=== PATIENT | female | born 1945 | race Caucasian/White ===

== ENCOUNTER 2017-11-18 14:48 | Inpatient (IN) | payer MEDICARE ==
--- NOTE | 2017-11-18 15:06 | ER Document Report ---
ED General Pain - General Stated Complaint: DIFFICULTY BREATHING Time Seen by Provider: 11/18/17 14:51 Mode of Arrival: Medic - HPI Notes: 72-year-old female with history of diabetes, hypothyroidism, COPD, continued tobacco abuse, cholecystectomy and hysterectomy presents with complaints of dyspnea as well as abdominal cramping. Cramping started initially approximately 4 days ago has been intermittent since then but fairly severe. It is diffuse across the upper abdomen and nonradiating otherwise. She has had some mild nausea but no vomiting. No diarrhea and her last bowel movement was yesterday which was normal. She has had no blood that she has noted. She has had a cough with some purulent sputum as well with shortness of breath starting today with significant amount of wheezing. Over approximately 4 hours, she has used 9 albuterol treatments as well but still having difficulty breathing. She denies any specific chest pain. She is noted wheezing. She has had some sore throat as well when the abdominal discomfort started but did not get the significant chills requiring multiple blankets until last night. EMS reported an oxygen saturation of 90% on room air upon arrival and treated her with Atrovent as well as Solu-Medrol 125 mg IV. Denies dysuria and hematuria. - Related Data Allergies/Adverse Reactions: aspirin [From Percodan] Allergy (Verified 06/18/12 10:54) Generalized Itching cefaclor [From Ceclor] Allergy (Verified 06/18/12 10:54) Generalized Itching Cephalosporins Allergy (Verified 06/18/12 10:54) oxaprozin [From Daypro] Allergy (Verified 06/18/12 10:54) itch/throat swells closed oxycodone HCl [From Percodan] Allergy (Verified 06/18/12 10:54) Generalized Itching oxycodone terephthalate [From Percodan] Allergy (Verified 06/18/12 10:54) Generalized Itching ranitidine HCl [From Zantac] Allergy (Verified 06/18/12 10:54) Sulfa (Sulfonamide Antibiotics) Allergy (Verified 06/18/12 10:54) itch/throat swells Past Medical History - Social History Smoking Status: Current Every Day Smoker Family History: Reviewed & Not Pertinent - Past Medical History Cardiac Medical History: Denies: Hx Heart Attack, Hx Hypertension Pulmonary Medical History: Denies: Hx Asthma Neurological Medical History: Denies: Hx Cerebrovascular Accident, Hx Seizures GI Medical History: Denies: Hx Hepatitis, Hx Hiatal Hernia - PT SUSPECTS BUT NO DX, Hx Ulcer Infectious Medical History: Denies: Hx Hepatitis Past Surgical History: Denies: Hx Mastectomy, Hx Open Heart Surgery, Hx Pacemaker Review of Systems - Review of Systems -: Yes All other systems reviewed and negative Physical Exam - Vital signs Vitals: Pulse Ox 93 11/18/17 14:52 Interpretation: Tachypneic - Notes Notes: GENERAL: VS as per nursing doc. morbidly obese and tachypneic in mild respiratory distress. HEAD: Atraumatic, normocephalic. EYES: Pupils equal round and reactive to light, extraocular movements intact, sclera anicteric, no conjunctival injection or discharge. ENT: Nares patent, oropharynx clear without exudates, moist mucous membranes. NECK: Normal range of motion, supple without lymphadenopathy. LUNGS: Tachypneic, breath sounds decreased bilaterally, diffuse inspiratory respiratory wheezes noted HEART: Regular rate and rhythm without murmurs. ABDOMEN: Soft, generalized upper abdominal tenderness, hyperactive bowel sounds. No guarding, no rebound. No masses appreciated. BACK: No CVA tenderness. EXTREMITIES: Normal range of motion, no calf tenderness, no edema. NEUROLOGICAL: Normal speech. Normal sensory and motor exams. No gross cerebellar abnormalities. PSYCH: Normal mood, normal affect. SKIN: Warm, dry. Course - Re-evaluation Re-evalutation: 11/18/17 17:00 Patient reevaluated still tight and wheezing. Will order more nebulizers. ABG is still not been completed. Apparently she refused from the nurse. She is very somnolent but does awaken and talks in clear voice. Explained to her the importance of the ABG as well. She understands we will not have a good picture of her oxygenation but we will attempt a VBG instead. - Vital Signs Vital signs: Temp Pulse Resp BP Pulse Ox 20 122/61 94 11/18/17 19:33 11/18/17 19:33 11/18/17 19:33 - Laboratory Result Diagrams: 11/18/17 15:40 11/18/17 15:40 Laboratory results interpreted by me: 11/18/17 11/18/17 11/18/17 15:40 15:40 17:25 RDW 15.1 H Seg Neuts % (Manual) 96 H Band Neutrophils % 2 L Lymphocytes % (Manual) 1 L Monocytes % (Manual) 1 L Abs Neuts (Manual) 8.7 H Abs Lymphs (Manual) 0.1 L ABG pO2 74.1 L ABG Total CO2 25.6 H Sodium 135.7 L Potassium 3.5 L Glucose 209 H - Diagnostic Test Radiology reviewed: Image reviewed, Reports reviewed - No acute process noted - EKG Interpretation by Me Rate: Tachycardia - Rate 104, sinus tachycardia, nonspecific ST abnormalities. No obvious acute ischemia. QRS of normal duration. - Consults Dr. Sanchez Time consulted: 20:03 - We have been holds currently. He requests another troponin. Patient has improved overall. Still requiring oxygen. Abdominal pain better. Findings discussed with patient and family. Discharge - Discharge Clinical Impression: COPD with exacerbation, Epigastric pain Condition: Fair Disposition: ADMITTED OBSERVATION Admitting Provider: Dr. Sanchez Unit Admitted: Telemetry
[2017-11-18] MEDS ORDERED: DICYCLOMINE HCL INJ 20 MG/2 ML AMPULE IM ONE (15:12)
[2017-11-18] MEDS ORDERED: ONDANSETRON HCL INJ/PF 4 MG/2 ML SDV IV ONE (15:12)
--- NOTE | 2017-11-18 15:34 | RADIOLOGY REPORT (SQ) ---
EXAM DESCRIPTION: CHEST SINGLE VIEW COMPLETED DATE/TIME: 11/18/2017 3:17 pm REASON FOR STUDY: Dyspnea COMPARISON: None. EXAM PARAMETERS: NUMBER OF VIEWS: One view. TECHNIQUE: Single frontal radiographic view of the chest acquired. RADIATION DOSE: NA LIMITATIONS: None. FINDINGS: LUNGS AND PLEURA: No opacities, masses or pneumothorax. No pleural effusion. MEDIASTINUM AND HILAR STRUCTURES: No masses. Contour normal. HEART AND VASCULAR STRUCTURES: Heart normal in size. Normal vasculature. BONES: No acute findings. HARDWARE: Operative changes lower cervical spine. OTHER: No other significant finding. IMPRESSION: NO ACUTE RADIOGRAPHIC FINDING IN THE CHEST. TECHNICAL DOCUMENTATION: JOB ID: [id number] [employer]- All Rights Reserved
[2017-11-18 16:16] LABS: HEMATOCRIT 41.6 % (36.0-47.0); HEMOGLOBIN 13.8 g/dL (12.0-15.5); MEAN CORPUSCULAR HEMOGLOBIN 29.7 pg (27.0-33.4); MEAN CORPUSCULAR HGB CONC 33.2 g/dL (32.0-36.0); MEAN CORPUSCULAR VOLUME 90 fl (80-97); PLATELET COUNT 210 10^3/uL (150-450); RED BLOOD COUNT 4.64 10^6/uL (3.72-5.28); RED CELL DISTRIBUTION WIDTH 15.1 % (11.5-14.0); WHITE BLOOD COUNT 8.9 10^3/uL (4.0-10.5)
[2017-11-18 16:39] LABS: ABSOLUTE LYMPHOCYTES# (MANUAL) 0.1 10^3/uL (0.5-4.7); ABSOLUTE MONOCYTES # (MANUAL) 0.1 10^3/uL (0.1-1.4); ABSOLUTE NEUTROPHILS# (MANUAL) 8.7 10^3/uL (1.7-8.2); ALANINE AMINOTRANSFERASE 32 U/L (9-52); ALBUMIN 3.7 g/dL (3.5-5.0); ALKALINE PHOSPHATASE 89 U/L (38-126); ANION GAP 12 (5-19); ASPARTATE AMINO TRANSFERASE 24 U/L (14-36); BAND NEUTROPHILS % (MANUAL) 2 % (3-5); BASOPHILS % (MANUAL) 0 % (0-2); BILIRUBIN,DIRECT 0.2 mg/dL (0.0-0.4); BILIRUBIN,TOTAL 0.5 mg/dL (0.2-1.3); BLOOD UREA NITROGEN 15 mg/dL (7-20); CALCIUM 8.9 mg/dL (8.4-10.2); CARBON DIOXIDE 23 mmol/L (22-30); CHLORIDE 101 mmol/L (98-107); EOSINOPHILS % (MANUAL) 0 % (0-6); GLUCOSE 209 mg/dL (75-110); HYPOCHROMASIA SLIGHT; LIPASE 31.9 U/L (23-300); LYMPHOCYTES % (MANUAL) 1 % (13-45); MONOCYTES % (MANUAL) 1 % (3-13); POTASSIUM 3.5 mmol/L (3.6-5.0); SEGMENTED NEUTROPHILS % (MAN) 96 % (42-78); SODIUM 135.7 mmol/L (137-145); TOTAL CELLS COUNTED 100; TOTAL PROTEIN 6.8 g/dL (6.3-8.2)
[2017-11-18 16:40] LABS: ANISOCYTOSIS SLIGHT; PLATELET COMMENT ADEQUATE
[2017-11-18] MEDS ORDERED: IPRATROPIUM/ALBUTEROL 0.5-2.5 MG/3 ML AMPUL NEB ONE (17:01)
[2017-11-18 18:04] LABS: ARTERIAL BLOOD BASE EXCESS -0.2 mmol/L; ARTERIAL BLOOD H2CO3 1.19 mmol/L (1.05-1.35); ARTERIAL BLOOD HCO3 24.4 mmol/L (20-26); ARTERIAL BLOOD PCO2 39.7 mmHg (35-45); ARTERIAL BLOOD PH 7.41 (7.35-7.45); ARTERIAL BLOOD PO2 74.1 mmHg (80-100); ARTERIAL BLOOD TOTAL CO2 25.6 mmol/L (21-25)
[2017-11-18 18:06] LABS: ARTERIAL BLOOD FIO2 3L
--- NOTE | 2017-11-18 18:34 | EKG REPORT ---
SEVERITY:- ABNORMAL ECG - SINUS TACHYCARDIA PROBABLE INFERIOR INFARCT, OLD : Confirmed by: Sonya Vasquez 18-Nov-2017 18:33:06
--- NOTE | 2017-11-18 19:30 | RADIOLOGY REPORT (SQ) ---
EXAM DESCRIPTION: CT ABD/PELVIS NO ORAL OR IV COMPLETED DATE/TIME: 11/18/2017 7:13 pm REASON FOR STUDY: Abd pain COMPARISON: None. TECHNIQUE: CT scan of the abdomen and pelvis performed without intravenous or oral contrast. Images reviewed with lung, soft tissue, and bone windows. Reconstructed coronal and sagittal MPR images revi ewed. All images stored on PACS. All CT scanners at this facility use dose modulation, iterative reconstruction, and/or weight based d osing when appropriate to reduce radiation dose to as low as reasonably achievable (ALARA). [facility]: Dose Right [facility]: CareDose [facility]: Dose Right [facility]: Teradose 4D [facility]: Smart Bactest RADIATION DOSE: CT Rad equipment meets quality standard of care and radiation dose reduction techniq ues were employed. CTDIvol: 27.2 mGy. DLP: 1375 mGy-cm.mGy. LIMITATIONS: None. FINDINGS: LOWER CHEST: Prominent fatty density between the right atrium and left atrium. Basilar sc arring. No nodules or infiltrates. NON-CONTRASTED LIVER, SPLEEN, ADRENALS: Evaluation limited by lack of IV contrast. No identified sign ificant masses. Calcified granulomas in the spleen. PANCREAS: No masses. No peripancreatic inflammatory changes. GALLBLADDER: Surgically absent. RIGHT KIDNEY AND URETER: No suspicious masses. Assessment limited by lack of IV contrast. No signif icant calcifications. No hydronephrosis or hydroureter. LEFT KIDNEY AND URETER: No suspicious masses. Assessment limited by lack of IV contrast. No signifi cant calcifications. No hydronephrosis or hydroureter. AORTA AND RETROPERITONEUM: No aneurysm. No retroperitoneal masses or adenopathy. BOWEL AND PERITONEAL CAVITY: Colonic diverticulosis. No obvious masses or inflammatory changes. No f ree fluid. APPENDIX: Normal. PELVIS, BLADDER, AND ABDOMINAL WALL:No abnormal masses. No free fluid. Bladder normal. BONES: No significant findings. OTHER: No other significant finding. IMPRESSION: 1. COLONIC DIVERTICULOSIS. NO CT FINDINGS OF ACUTE DIVERTICULITIS. NO OTHER SIGNIFICANT OR ACUTE AL OCESS IN THE ABDOMEN OR PELVIS. 2. PROMINENT FATTY DENSITY BETWEEN THE RIGHT ATRIUM AND LEFT ATRIUM. THIS COULD BE DUE TO LIPOMATOSI S HYPERTROPHY OR LIPOMA. CONSIDER FURTHER EVALUATION WITH ECHOCARDIOGRAPHY. COMMENT: Quality ID # [id number]: Final reports with documentation of one or more dose reduction techniques (e.g., Automated exposure control, adjustment of the mA and/or kV according to patient size, use of iterative reconstruction technique) TECHNICAL DOCUMENTATION: JOB ID: [id number] [employer]- All Rights Reserved
[2017-11-18] MEDS ORDERED: GLUCAGON,HUMAN RECOMB 1 MG INJ IM PRN (21:43)
[2017-11-18] MEDS ORDERED: DEXTROSE 40% GEL 15 GM TUBE PO PRN ×2 (21:43)
[2017-11-18] MEDS ORDERED: DEXTROSE 50%-WATER 25 GM/50 ML DISP.SYRIN IV PRN ×2 (21:43)
[2017-11-18] MEDS ORDERED: IPRATROPIUM/ALBUTEROL 0.5-2.5 MG/3 ML AMPUL NEB PRN (21:43)
[2017-11-18] MEDS ORDERED: HYDRALAZINE HCL INJ/PF 20 MG/1 ML SDV IV PRN (21:43)
[2017-11-18] MEDS ORDERED: CHLORPHENIRAMINE MALEATE 4 MG TABLET PO ONE (22:30)
[2017-11-18] MEDS ORDERED: CHLORPHENIRAMINE MALEATE 4 MG TABLET ONE (23:21)
[2017-11-18] MEDS ORDERED: FLUTICASONE NASAL SPRAY 50 MCG/SPRY 120 SPRAY/16 GM ONE (23:22)
[2017-11-18] MEDS: GUAIFENESIN 600 MG TABLET.SA PO SCH (23:46)
[2017-11-18] MEDS: HEPARIN SOD (PORCINE) 5,000 UNIT/ML 1 ML SYRINGE SUBCUT SCH (23:46)
[2017-11-18] MEDS: FLUTICASONE NASAL SPRAY 50 MCG/SPRY 120 SPRAY/16 GM NASL SCH (23:46)
[2017-11-19] MEDS: IPRATROPIUM/ALBUTEROL 0.5-2.5 MG/3 ML AMPUL NEB SCH ×5 (01:57→23:42)
[2017-11-19] MEDS: GUAIFENESIN SYRP 200 MG/10 ML UDC PO PRN ×2 (02:54→06:43)
[2017-11-19 05:16] LABS: ANION GAP 8 (5-19); BLOOD UREA NITROGEN 18 mg/dL (7-20); CALCIUM 8.9 mg/dL (8.4-10.2); CARBON DIOXIDE 28 mmol/L (22-30); CHLORIDE 101 mmol/L (98-107); GLUCOSE 189 mg/dL (75-110); SODIUM 136.7 mmol/L (137-145)
[2017-11-19] MEDS: ACETAMINOPHEN 325 MG TABLET PO PRN (05:19)
[2017-11-19] MEDS: HEPARIN SOD (PORCINE) 5,000 UNIT/ML 1 ML SYRINGE SUBCUT SCH ×3 (05:19→21:20)
[2017-11-19 05:27] LABS: HEMATOCRIT 40.7 % (36.0-47.0); HEMOGLOBIN 13.4 g/dL (12.0-15.5); MEAN CORPUSCULAR HEMOGLOBIN 29.8 pg (27.0-33.4); MEAN CORPUSCULAR VOLUME 91 fl (80-97); PLATELET COUNT 184 10^3/uL (150-450); RED CELL DISTRIBUTION WIDTH 15.1 % (11.5-14.0); WHITE BLOOD COUNT 6.7 10^3/uL (4.0-10.5)
[2017-11-19 05:28] LABS: POTASSIUM 4.7 mmol/L (3.6-5.0)
[2017-11-19 06:09] LABS: ABSOLUTE LYMPHOCYTES# (MANUAL) 0.4 10^3/uL (0.5-4.7); ABSOLUTE MONOCYTES # (MANUAL) 0.2 10^3/uL (0.1-1.4); ABSOLUTE NEUTROPHILS# (MANUAL) 6.1 10^3/uL (1.7-8.2); BAND NEUTROPHILS % (MANUAL) 2 % (3-5); BASOPHILS % (MANUAL) 0 % (0-2); EOSINOPHILS % (MANUAL) 0 % (0-6); LYMPHOCYTES % (MANUAL) 6 % (13-45); MONOCYTES % (MANUAL) 3 % (3-13); SEGMENTED NEUTROPHILS % (MAN) 89 % (42-78); TOTAL CELLS COUNTED 100
[2017-11-19 06:10] LABS: ANISOCYTOSIS SLIGHT; PLATELET COMMENT ADEQUATE; TOXIC GRANULATION 1+
--- NOTE | 2017-11-19 07:38 | PDOC H&P ---
History of Present Illness Admission Date/PCP: 11/18/17 20:19 Patient complains of: Shortness of breath History of Present Illness: JUAN MCGRATH is a 72 year old female with past medical history of diabetes, hypothyroidism, COPD, chronic bronchitis, tobacco abuse and morbid obesity. She presents with 4 days of sore throat, uncontrolled acid reflux, shortness of breath and a nonproductive cough. She denies chest pain nausea and vomiting. Her has similar symptoms and is hospitalized for the same. In the emergency room she is found to have oxygen saturations of only 90% on room air after several albuterol Atrovent treatments and Solu-Medrol. She is referred to the hospitalist for admission. Past Medical History Cardiac Medical History: Denies: Myocardial Infarction, Hypertension Pulmonary Medical History: Reports: Bronchitis, Chronic Obstructive Pulmonary Disease (COPD) Denies: Asthma Neurological Medical History: Denies: Seizures Endocrine Medical History: Reports: Diabetes Mellitus Type 2, Hypothyroidism, Obesity GI Medical History: Denies: Hepatitis, Hiatal Hernia - PT SUSPECTS BUT NO DX Psychiatric Medical History: Reports: Tobacco Dependency Hematology: Denies: Anemia, Sickle Cell Disease Past Surgical History Past Surgical History: Denies: Amputation, Mastectomy, Pacemaker Social History Information Source: Patient, [facility] Records Lives with: Spouse/Significant other Smoking Status: Current Every Day Smoker Cigarettes Packs Per Day: 1 Frequency of Alcohol Use: None Drugs: None - Advance Directive Resuscitation Status: Full Code Family History Family History: COPD Parental Family History Reviewed: Yes Children Family History Reviewed: Yes Sibling(s) Family History Reviewed.: Yes Medication/Allergy Home Medications: Glimepiride [Amaryl] 2 mg PO BID 11/18/17 Allergies/Adverse Reactions: aspirin [From Percodan] Allergy (Verified 06/18/12 10:54) Generalized Itching cefaclor [From Ceclor] Allergy (Verified 06/18/12 10:54) Generalized Itching Cephalosporins Allergy (Verified 06/18/12 10:54) oxaprozin [From Daypro] Allergy (Verified 06/18/12 10:54) itch/throat swells closed oxycodone HCl [From Percodan] Allergy (Verified 06/18/12 10:54) Generalized Itching oxycodone terephthalate [From Percodan] Allergy (Verified 08/22/12 10:54) Generalized Itching ranitidine HCl [From Zantac] Allergy (Verified 06/18/12 10:54) Sulfa (Sulfonamide Antibiotics) Allergy (Verified 06/18/12 10:54) itch/throat swells Review of Systems Constitutional: PRESENT: fatigue. ABSENT: chills, fever(s), headache(s), weight gain, weight loss Eyes: ABSENT: visual disturbances Ears: ABSENT: hearing changes Cardiovascular: ABSENT: chest pain, dyspnea on exertion, edema, orthropnea, palpitations Respiratory: PRESENT: as per HPI, cough, dyspnea. ABSENT: hemoptysis Gastrointestinal: ABSENT: abdominal pain, constipation, diarrhea, hematemesis, hematochezia, nausea, vomiting Genitourinary: ABSENT: dysuria, hematuria Musculoskeletal: ABSENT: joint swelling Integumentary: ABSENT: rash, wounds Neurological: ABSENT: abnormal gait, abnormal speech, confusion, dizziness, focal weakness, syncope Psychiatric: ABSENT: anxiety, depression, homidical ideation, suicidal ideation Endocrine: ABSENT: cold intolerance, heat intolerance, polydipsia, polyuria Hematologic/Lymphatic: ABSENT: easy bleeding, easy bruising Physical Exam Vital Signs: Temp Pulse Resp BP Pulse Ox 98.5 F 96 18 143/62 H 96 11/19/17 03:55 11/19/17 03:55 11/19/17 03:55 11/19/17 03:55 11/19/17 03:55 Intake & Output 11/17/17 11/18/17 11/19/17 11:59 11:59 11:59 Intake Total 200 Output Total 100 Balance 100 Weight 117.1 kg General appearance: PRESENT: cooperative, obese, severe distress Head exam: PRESENT: atraumatic, normocephalic Eye exam: PRESENT: conjunctiva pink, EOMI, PERRLA. ABSENT: scleral icterus Ear exam: PRESENT: normal external ear exam Mouth exam: PRESENT: moist, tongue midline Neck exam: ABSENT: carotid bruit, JVD, lymphadenopathy, thyromegaly Respiratory exam: PRESENT: accessory muscle use, crackles, prolonged expiratory phas, rales, retraction, symmetrical, tachypnea Cardiovascular exam: PRESENT: RRR. ABSENT: diastolic murmur, rubs, systolic murmur Pulses: PRESENT: normal dorsalis pedis pul Vascular exam: PRESENT: normal capillary refill GI/Abdominal exam: PRESENT: normal bowel sounds, soft. ABSENT: distended, guarding, mass, organolmegaly, rebound, tenderness Rectal exam: PRESENT: deferred Extremities exam: PRESENT: full ROM. ABSENT: calf tenderness, clubbing, pedal edema Neurological exam: PRESENT: alert, awake, oriented to person, oriented to place , oriented to time, oriented to situation, CN II-XII grossly intact. ABSENT: motor sensory deficit Psychiatric exam: PRESENT: appropriate affect, normal mood. ABSENT: homicidal ideation, suicidal ideation Skin exam: PRESENT: dry, intact, warm. ABSENT: cyanosis, rash Results Laboratory Results: 11/19/17 03:55 11/19/17 03:55 11/19/17 11/19/17 03:55 03:55 WBC 6.7 RBC 4.50 Hgb 13.4 Hct 40.7 MCV 91 MCH 29.8 MCHC 33.0 RDW 15.1 H Plt Count 184 Seg Neutrophils % Not Reportable Lymphocytes % Not Reportable Monocytes % Not Reportable Eosinophils % Not Reportable Basophils % Not Reportable Absolute Neutrophils Not Reportable Absolute Lymphocytes Not Reportable Absolute Monocytes Not Reportable Absolute Eosinophils Not Reportable Absolute Basophils Not Reportable Sodium 136.7 L Potassium 4.7 D Chloride 101 Carbon Dioxide 28 Anion Gap 8 BUN 18 Creatinine 0.68 Est GFR ( Amer) > 60 Est GFR (Non-Af Amer) > 60 Glucose 189 H Calcium 8.9 11/18/17 20:50 Troponin I 0.015 Impressions: Chest X-Ray 11/18/17 15:04 IMPRESSION: NO ACUTE RADIOGRAPHIC FINDING IN THE CHEST. Abdomen/Pelvis CT 11/18/17 18:13 IMPRESSION: 1. COLONIC DIVERTICULOSIS. NO CT FINDINGS OF ACUTE DIVERTICULITIS. NO OTHER SIGNIFICANT OR ACUTE PROCESS IN THE ABDOMEN OR PELVIS. 2. PROMINENT FATTY DENSITY BETWEEN THE RIGHT ATRIUM AND LEFT ATRIUM. THIS COULD BE DUE TO LIPOMATOSIS HYPERTROPHY OR LIPOMA. CONSIDER FURTHER EVALUATION WITH ECHOCARDIOGRAPHY. Assessment & Plan - Diagnosis (1) Acute bronchitis Is this a current diagnosis for this admission?: Yes Plan: Telemetry, supplemental oxygen, empiric antibiotic, albuterol and Atrovent, flutter valve and incentive spirometry (2) Diabetes Is this a current diagnosis for this admission?: Yes Plan: Home regiment with sliding scale (3) Morbid obesity Is this a current diagnosis for this admission?: Yes Plan: Morbid obesity will evaluate for metabolic cause with evaluation of thyroid function and dietitian consultation (4) COPD with exacerbation Is this a current diagnosis for this admission?: Yes Plan: Complicated by tobacco dependence please see #1 (5) Tobacco dependency Is this a current diagnosis for this admission?: Yes Plan: Tobacco Dependence patient received tobacco cessation counseling and offered nicotine replacement options - Time Time Spent: 50 to 70 Minutes - Inpatient Certification Medical Necessity: Need Close Monitoring Due to Risk of Patient Decompensation
[2017-11-19] MEDS ORDERED: AZITHROMYCIN 500 MG in DEXTROSE 5%-WATER 250 ML IV SCH (10:00)
[2017-11-19] MEDS: GLIMEPIRIDE 1 MG TABLET PO SCH ×2 (10:30→17:55)
[2017-11-19] MEDS: PREDNISONE 20 MG TABLET PO SCH ×2 (10:30→17:55)
[2017-11-19] MEDS: GUAIFENESIN 600 MG TABLET.SA PO SCH ×2 (10:30→21:20)
[2017-11-19] MEDS: FLUTICASONE NASAL SPRAY 50 MCG/SPRY 120 SPRAY/16 GM NASL SCH ×2 (10:31→21:26)
[2017-11-19] MEDS: CALCIUM CARBONATE 500 MG TAB.CHEW PO SCH ×3 (12:38→21:20)
--- NOTE | 2017-11-19 14:00 | Physician Advisory Note ---
Physician Advisor ProgressNote .: Pursuant to the plan for [facility], I have reviewed the medical record for this patient. Physician Advisor Statement: Please consider documenting, if you agree: 1. "Acute Hypoxemic Respiratory Failure with labored breathing/accessory muscle use & hypoxemia with pO2 74 on 3L O2" 2. "Acute epigastric pain, suspect most likely due to " [gastric ulcer ? mesenteric ischemia? ...] 3. "Acute hyponatremia, likely due to ", & state how being addressed: IVF? fluid restriction? f/u labs? ... 4. Medical necessity: Please document each day the reasons pt unable to be safely d/c'd that day, such as - "continued need for O2 which she doesn't need at baseline", - "respiratory function not yet back to baseline", - "continues hemodynamically unstable", - "I AM CONCERNED about ", ... Status: Medicare pt with COPD, DM, morbid obesity, here w/hypoxemia & increased work of breathing. Despite hospital level care through 1 MN, pt was still in severe distress this AM. She has been tx'd with multiple nebs, IV Solumedrol, abx, O2, Bipap, flutter valve, incentive spirometry. Per discussion with pt's nurse just now, pt still has labored breathing this PM , still requiring O2 & intermittent Bipap - no chance she will be improved enough for safe d/c before a 2nd MN. appropriate for Inpt status. Thanks! BEATRIZ
[2017-11-19] MEDS: BUDESONIDE NEB 0.5 MG/2 ML AMPUL NEB SCH (20:01)
[2017-11-19] MEDS: MONTELUKAST SODIUM 10 MG TABLET PO SCH (21:20)
[2017-11-19] MEDS: PANTOPRAZOLE SODIUM 40 MG VIAL IV SCH (21:21)
[2017-11-19] MEDS: METHYLPREDNISOLONE INJ 40 MG/1 ML SDV IV SCH (21:25)
[2017-11-20] MEDS: ACETAMINOPHEN 325 MG TABLET PO PRN (02:48)
[2017-11-20] MEDS ORDERED: MAGNESIUM CITRATE 296 ML BOTTLE PO ONE (04:00)
[2017-11-20] MEDS: IPRATROPIUM/ALBUTEROL 0.5-2.5 MG/3 ML AMPUL NEB SCH ×5 (04:16→19:49)
[2017-11-20] MEDS: METHYLPREDNISOLONE INJ 40 MG/1 ML SDV IV SCH ×3 (05:54→21:56)
[2017-11-20] MEDS: HEPARIN SOD (PORCINE) 5,000 UNIT/ML 1 ML SYRINGE SUBCUT SCH ×3 (05:55→22:05)
[2017-11-20] MEDS: BUDESONIDE NEB 0.5 MG/2 ML AMPUL NEB SCH ×2 (08:39→19:49)
[2017-11-20] MEDS: GLIMEPIRIDE 1 MG TABLET PO SCH ×2 (10:16→18:26)
[2017-11-20] MEDS: CALCIUM CARBONATE 500 MG TAB.CHEW PO SCH ×4 (10:16→21:55)
[2017-11-20] MEDS: FLUTICASONE NASAL SPRAY 50 MCG/SPRY 120 SPRAY/16 GM NASL SCH ×2 (10:16→21:56)
[2017-11-20] MEDS: GUAIFENESIN 600 MG TABLET.SA PO SCH ×2 (10:16→21:53)
[2017-11-20] MEDS: LEVOFLOXACIN 500 MG TABLET PO SCH (10:16)
[2017-11-20] MEDS: PANTOPRAZOLE SODIUM 40 MG VIAL IV SCH ×2 (10:16→21:56)
--- NOTE | 2017-11-20 11:06 | PDOC PROGRESS REPORT ---
Subjective Progress Note for:: 11/19/17 Subjective:: Patient presented with COPD exacerbation acute hypoxic respiratory failure. Patient require intermittent BiPAP. Patient was wheezing and using accessory muscles when I entered the room. Patient is asking for normal saline drops without any preservative to use for her eyes as she had a recent cataract surgery and cannot use drops or preservatives. Reason For Visit: COPD EXACERBATION. DIABETES Physical Exam Vital Signs: Temp Pulse Resp BP Pulse Ox 98.9 F 88 20 131/70 H 95 11/19/17 20:44 11/19/17 20:44 11/19/17 20:44 11/19/17 20:44 11/19/17 20:44 Intake & Output 11/18/17 11/19/17 11/20/17 06:59 06:59 06:59 Intake Total 200 875 Output Total 100 Balance 100 875 Weight 117.1 kg 117.1 kg General appearance: PRESENT: no acute distress, morbidly obese Head exam: PRESENT: normocephalic Eye exam: PRESENT: EOMI. ABSENT: scleral icterus Ear exam: PRESENT: normal external ear exam Mouth exam: PRESENT: moist Neck exam: ABSENT: carotid bruit, JVD, lymphadenopathy, thyromegaly Respiratory exam: PRESENT: accessory muscle use, tachypnea, wheezes. ABSENT: rales, rhonchi, unlabored Cardiovascular exam: PRESENT: RRR. ABSENT: diastolic murmur, rubs, systolic murmur Pulses: PRESENT: normal dorsalis pedis pul Vascular exam: PRESENT: normal capillary refill GI/Abdominal exam: PRESENT: normal bowel sounds, soft. ABSENT: distended, guarding, mass, organolmegaly, rebound, tenderness Rectal exam: PRESENT: deferred Extremities exam: PRESENT: full ROM. ABSENT: calf tenderness, clubbing, pedal edema Neurological exam: PRESENT: alert, awake, oriented to person, oriented to place , oriented to time, oriented to situation, CN II-XII grossly intact. ABSENT: motor sensory deficit Psychiatric exam: PRESENT: appropriate affect, normal mood. ABSENT: homicidal ideation, suicidal ideation Skin exam: PRESENT: dry, intact, warm. ABSENT: cyanosis, rash Results Laboratory Results: 11/19/17 03:55 11/19/17 03:55 11/19/17 11/19/17 03:55 03:55 WBC 6.7 RBC 4.50 Hgb 13.4 Hct 40.7 MCV 91 MCH 29.8 MCHC 33.0 RDW 15.1 H Plt Count 184 Seg Neutrophils % Not Reportable Lymphocytes % Not Reportable Monocytes % Not Reportable Eosinophils % Not Reportable Basophils % Not Reportable Absolute Neutrophils Not Reportable Absolute Lymphocytes Not Reportable Absolute Monocytes Not Reportable Absolute Eosinophils Not Reportable Absolute Basophils Not Reportable Sodium 136.7 L Potassium 4.7 D Chloride 101 Carbon Dioxide 28 Anion Gap 8 BUN 18 Creatinine 0.68 Est GFR ( Amer) > 60 Est GFR (Non-Af Amer) > 60 Glucose 189 H Calcium 8.9 11/18/17 20:50 Troponin I 0.015 Impressions: Chest X-Ray 11/18/17 15:04 IMPRESSION: NO ACUTE RADIOGRAPHIC FINDING IN THE CHEST. Abdomen/Pelvis CT 11/18/17 18:13 IMPRESSION: 1. COLONIC DIVERTICULOSIS. NO CT FINDINGS OF ACUTE DIVERTICULITIS. NO OTHER SIGNIFICANT OR ACUTE PROCESS IN THE ABDOMEN OR PELVIS. 2. PROMINENT FATTY DENSITY BETWEEN THE RIGHT ATRIUM AND LEFT ATRIUM. THIS COULD BE DUE TO LIPOMATOSIS HYPERTROPHY OR LIPOMA. CONSIDER FURTHER EVALUATION WITH ECHOCARDIOGRAPHY. Assessment & Plan - Diagnosis (1) Acute and chronic respiratory failure with hypoxia Is this a current diagnosis for this admission?: Yes Plan: With acute hypoxic respiratory failure. Patient PO2 was 74.1 on 3 L. Patient is still requiring supplemental oxygen and BiPAP. (2) Acute bronchitis Is this a current diagnosis for this admission?: Yes Plan: She most likely with a viral bronchitis. Patient being covered empirically with antibiotics. Will switch to Levaquin. Will change patient's p.o. prednisone to IV Solu-Medrol as she is still wheezing excessively. Patient duo nebs will be scheduled and given that her increased frequency. Will add budesonide and Singulair. Patient already on mucolytic. (3) COPD with exacerbation Is this a current diagnosis for this admission?: Yes Plan: Patient with COPD exacerbation. Please refer to management under acute bronchitis. (4) Diabetes Is this a current diagnosis for this admission?: Yes Plan: Anemia home regimen and sliding scale insulin. Will have to monitor aggressively especially with the switch from p.o. prednisone to IV Solu-Medrol and increased dose of steroids. (5) Epigastric pain Is this a current diagnosis for this admission?: Yes Plan: Patient may have gastritis as she does have a smoking history. Patient on PPI. Will start Tums and Carafate if as necessary. (6) Morbid obesity Is this a current diagnosis for this admission?: Yes Plan: Plan was to check thyroid studies however that was done. Will follow up on this. Patient may benefit from dietary counseling and encourage patient to have physical activity. (7) Tobacco dependency Is this a current diagnosis for this admission?: Yes Plan: Counseled on smoking cessation. Patient may benefit from nicotine patch. - Time Time Spent with patient: 15-24 minutes Anticipated discharge: Home Within: Other - Inpatient Certification Medical Necessity: Need for Nebulizer Therapy and Monitoring of Response - Patient with hypoxemia. Patient normally does not use supplemental oxygen at home. We will have to wean patient off of supplemental oxygen prior to discharge home., Need for IV Antibiotics
[2017-11-20] MEDS: SUCRALFATE 1 GM TABLET PO SCH ×3 (14:51→21:54)
[2017-11-20] MEDS: METOCLOPRAMIDE HCL 10 MG TABLET PO SCH (21:54)
[2017-11-20] MEDS: MONTELUKAST SODIUM 10 MG TABLET PO SCH (21:55)
[2017-11-21] MEDS: IPRATROPIUM/ALBUTEROL 0.5-2.5 MG/3 ML AMPUL NEB SCH ×6 (00:04→19:51)
[2017-11-21] MEDS: HEPARIN SOD (PORCINE) 5,000 UNIT/ML 1 ML SYRINGE SUBCUT SCH ×2 (05:47→13:38)
[2017-11-21] MEDS: METHYLPREDNISOLONE INJ 40 MG/1 ML SDV IV SCH ×3 (05:48→21:35)
[2017-11-21] MEDS: BUDESONIDE NEB 0.5 MG/2 ML AMPUL NEB SCH ×2 (08:24→19:51)
[2017-11-21] MEDS: SUCRALFATE 1 GM TABLET PO SCH ×3 (08:26→16:31)
[2017-11-21] MEDS: CALCIUM CARBONATE 500 MG TAB.CHEW PO SCH ×3 (08:26→16:32)
[2017-11-21] MEDS: METOCLOPRAMIDE HCL 10 MG TABLET PO SCH ×4 (08:27→21:33)
[2017-11-21] MEDS: GLIMEPIRIDE 1 MG TABLET PO SCH ×2 (09:10→17:38)
[2017-11-21] MEDS: FLUTICASONE NASAL SPRAY 50 MCG/SPRY 120 SPRAY/16 GM NASL SCH ×2 (09:10→21:31)
[2017-11-21] MEDS: GUAIFENESIN 600 MG TABLET.SA PO SCH ×2 (09:10→21:32)
[2017-11-21] MEDS: LEVOFLOXACIN 500 MG TABLET PO SCH (09:10)
[2017-11-21] MEDS: PANTOPRAZOLE SODIUM 40 MG VIAL IV SCH (09:11)
--- NOTE | 2017-11-21 09:42 | XCELERA REPORT ---
[address] [address] Transthoracic Echocardiogram Report Name: JUAN MCGRATH Age: 72 yrs Gender: Female : 1945 Patient Status: Inpatient Patient Location: [address] [place] [address] Study Date: 11/20/2017 01:25 PM Height: 64 in Weight: 264 lb BSA: 2.2 m2 Procedure: A complete two-dimensional transthoracic echocardiogram was performed (2D, M-mode, spectral and color flow Doppler). The study was technically adequate with some images being suboptimal in quality. Reason For Study: mass Ordering Physician: PATEL COOPER Performed By: Amanda Patino Interpretation Summary Ill defined echodensity R atrial area. Difficult visualzation. Consider cardiac CTA, Cardiac MRI, EDGARDO etc The left ventricular ejection fraction is normal. There is borderline concentric left ventricular hypertrophy. Doppler measurements suggest impaired left ventricular relaxation, which is associated with grade I/IV or mild diastolic dysfunction Wall motion cannot be accurately commented on, but no definite regional wall motion abnormalities noted. The left ventricle is grossly normal size. The right ventricle is borderline dilated. The right atrium is borderline dilated. The left atrial size is normal. There is no mitral valve stenosis. There is a trace amount of mitral regurgitation There is no aortic valve stenosis No aortic regurgitation is present. There is a trace or physiologic amount of tricuspid regurgitation Tricuspid regurgitation jet envelope not well defined to measure RV systolic pressure accurately. The aortic root is not well visualized. The inferior vena cava appeared normal and decreased < 50% with respiration (RAP 10-15 mmHg) Minimal pericardial effusion. MMode/2D Measurements & Calculations RVDd: 2.5 cm LVIDd: 4.6 cm FS: 33.8 % Ao root diam: 3.5 cm IVSd: 1.0 cm LVIDs: 3.0 cm EDV(Teich): 94.9 ml LVPWd: 1.00 cm ESV(Teich): 35.4 ml Ao root area: 9.8 cm2 EF(Teich): 62.7 % Doppler Measurements & Calculations MV E max isabela: MV dec slope: Ao V2 max: LV V1 max P.6 cm/sec 122.7 cm/sec 4.2 mmHg MV A max isabela: 334.8 cm/sec2 Ao max PG: LV V1 max: 85.9 cm/sec MV dec time: 6.0 mmHg 103.0 cm/sec MV E/A: 0.91 0.23 sec PA V2 max: TR max isabela: 89.6 cm/sec 243.7 cm/sec PA max PG: TR max P.8 mmHg 3.2 mmHg Left Ventricle The left ventricle is grossly normal size. There is borderline concentric left ventricular hypertrophy. The left ventricular ejection fraction is normal. Doppler measurements suggest impaired left ventricular relaxation, which is associated with grade I/IV or mild diastolic dysfunction. Wall motion cannot be accurately commented on, but no definite regional wall motion abnormalities noted. Right Ventricle The right ventricle is borderline dilated. There is normal right ventricular wall thickness. The right ventricular systolic function is normal. Atria The right atrium is borderline dilated. The left atrial size is normal. Interarterial septum not well visualized and not well dopplered. Cannot comment on ASD/PFO presence. Mitral Valve The mitral valve leaflets are sclerotic, but show no functional abnormalities. There is no mitral valve stenosis. There is a trace amount of mitral regurgitation. Aortic Valve The aortic valve is not well visualized secondary to technical limitations. There is no aortic valve stenosis. No aortic regurgitation is present. Tricuspid Valve The tricuspid valve is not well visualized secondary to technical limitations. There is no tricuspid stenosis. There is a trace or physiologic amount of tricuspid regurgitation. Tricuspid regurgitation jet envelope not well defined to measure RV systolic pressure accurately. Pulmonic Valve The pulmonic valve is not well visualized. Great Vessels The aortic root is not well visualized. The inferior vena cava appeared normal and decreased < 50% with respiration (RAP 10-15 mmHg). Effusions Minimal pericardial effusion. Incidental Findings Ill defined echodensity R atrial area. Difficult visualzation. Consider cardiac CTA, Cardiac MRI, EDGARDO etc. : PATEL COOPER > Sonya Vasquez
[2017-11-21] MEDS: NICOTINE 21 MG/24 HR PATCH.TD24 TD SCH (11:10)
--- NOTE | 2017-11-21 11:12 | PDOC PROGRESS REPORT ---
Subjective Progress Note for:: 11/20/17 Subjective:: She appears more comfortable from a respiratory standpoint however she is still short of breath with activity. Patient also having abdominal pain. Patient states his upper abdomen. Is not associated with food. Explained that it this may be related to her diabetes. Reason For Visit: COPD EXACERBATION. DIABETES Physical Exam Vital Signs: Temp Pulse Resp BP Pulse Ox 98.1 F 74 17 123/79 93 11/20/17 19:47 11/20/17 19:49 11/20/17 19:49 11/20/17 19:47 11/20/17 19:47 Intake & Output 11/19/17 11/20/17 11/21/17 06:59 06:59 06:59 Intake Total 200 1175 595 Output Total 100 400 Balance 100 775 595 Weight 117.1 kg 120.1 kg General appearance: PRESENT: no acute distress, obese, well-nourished Head exam: PRESENT: normocephalic Eye exam: PRESENT: EOMI. ABSENT: scleral icterus Ear exam: PRESENT: normal external ear exam Mouth exam: PRESENT: moist Neck exam: ABSENT: carotid bruit, JVD, lymphadenopathy, thyromegaly Respiratory exam: PRESENT: wheezes, other - Coarse breath sounds. ABSENT: rales , rhonchi, unlabored Cardiovascular exam: PRESENT: RRR. ABSENT: diastolic murmur, rubs, systolic murmur Pulses: PRESENT: normal dorsalis pedis pul Vascular exam: PRESENT: normal capillary refill GI/Abdominal exam: PRESENT: normal bowel sounds, soft. ABSENT: distended, guarding, mass, organolmegaly, rebound, tenderness Rectal exam: PRESENT: deferred Extremities exam: PRESENT: full ROM. ABSENT: calf tenderness, clubbing, pedal edema Neurological exam: PRESENT: alert, awake, oriented to person, oriented to place , oriented to time, oriented to situation, CN II-XII grossly intact. ABSENT: motor sensory deficit Psychiatric exam: PRESENT: appropriate affect, normal mood. ABSENT: homicidal ideation, suicidal ideation Skin exam: PRESENT: dry, intact, warm. ABSENT: cyanosis, rash Results Laboratory Results: 11/19/17 03:55 11/19/17 03:55 11/18/17 20:50 Troponin I 0.015 Impressions: Chest X-Ray 11/18/17 15:04 IMPRESSION: NO ACUTE RADIOGRAPHIC FINDING IN THE CHEST. Abdomen/Pelvis CT 11/18/17 18:13 IMPRESSION: 1. COLONIC DIVERTICULOSIS. NO CT FINDINGS OF ACUTE DIVERTICULITIS. NO OTHER SIGNIFICANT OR ACUTE PROCESS IN THE ABDOMEN OR PELVIS. 2. PROMINENT FATTY DENSITY BETWEEN THE RIGHT ATRIUM AND LEFT ATRIUM. THIS COULD BE DUE TO LIPOMATOSIS HYPERTROPHY OR LIPOMA. CONSIDER FURTHER EVALUATION WITH ECHOCARDIOGRAPHY. Assessment & Plan - Diagnosis (1) Acute and chronic respiratory failure with hypoxia Is this a current diagnosis for this admission?: Yes Plan: With acute hypoxic respiratory failure. Patient PO2 was 74.1 on 3 L. Patient is still requiring supplemental oxygen and BiPAP PRN. Patient would rather not use bipap. Patient is not on oxygen at baseline. (2) Acute bronchitis Is this a current diagnosis for this admission?: Yes Plan: She most likely with a viral bronchitis. Patient with some improvement Patient being covered empirically with antibiotics. Continue Levaquin and IV Solu-Medrol. Wheezing improved however patient still short of breath with minimal activity which is unusual. Continue nebs, budesonide, Singulair and mucolytic. (3) COPD with exacerbation Is this a current diagnosis for this admission?: Yes Plan: Patient with COPD exacerbation. Please refer to management under acute bronchitis. Patient is still short of breath with minimal activity. She is also require supplemental oxygen which she does not use at baseline. Will continue to wean oxygen. (4) Diabetes Is this a current diagnosis for this admission?: Yes Plan: Anemia home regimen and sliding scale insulin. (5) Epigastric pain Is this a current diagnosis for this admission?: Yes Plan: Patient may have gastritis as she does have a smoking history. Patient on PPI. Continue Tums and Carafate if as necessary. Concern that patient may have gastroparesis considering her 20 plus years. Will start patient on reglan. (6) Morbid obesity Is this a current diagnosis for this admission?: Yes Plan: Plan was to check thyroid studies however that was done. Will follow up on this. Patient may benefit from dietary counseling and encourage patient to have physical activity. (7) Tobacco dependency Is this a current diagnosis for this admission?: Yes Plan: Counseled on smoking cessation. Patient may benefit from nicotine patch. - Time Time Spent with patient: Less than 15 minutes Anticipated discharge: Home Within: within 72 hours - Inpatient Certification Medical Necessity: Need for Nebulizer Therapy and Monitoring of Response - Patient is still requiring supplimental oxygen. She is also short of breath with minimal activity., Other
[2017-11-21] MEDS: INSULIN LISPRO 100 UNIT/ML 3 ML VIAL SUBCUT PRN ×2 (13:38→17:38)
[2017-11-21] MEDS: MONTELUKAST SODIUM 10 MG TABLET PO SCH (21:32)
[2017-11-22] MEDS: GUAIFENESIN SYRP 200 MG/10 ML UDC PO PRN ×3 (01:54→20:43)
[2017-11-22] MEDS: IPRATROPIUM/ALBUTEROL 0.5-2.5 MG/3 ML AMPUL NEB SCH ×4 (02:02→20:31)
[2017-11-22] MEDS: METHYLPREDNISOLONE INJ 40 MG/1 ML SDV IV SCH ×2 (06:08→13:34)
[2017-11-22] MEDS: BUDESONIDE NEB 0.5 MG/2 ML AMPUL NEB SCH ×2 (08:12→20:31)
[2017-11-22] MEDS: METOCLOPRAMIDE HCL 10 MG TABLET PO SCH ×4 (08:37→22:24)
[2017-11-22] MEDS: INSULIN LISPRO 100 UNIT/ML 3 ML VIAL SUBCUT PRN ×3 (08:42→22:22)
[2017-11-22] MEDS: LACTOBACILLUS ACIDOPHILUS 250 MG TAB PO SCH (10:09)
[2017-11-22] MEDS: FLUTICASONE NASAL SPRAY 50 MCG/SPRY 120 SPRAY/16 GM NASL SCH ×2 (10:09→22:23)
[2017-11-22] MEDS: GUAIFENESIN 600 MG TABLET.SA PO SCH ×2 (10:09→22:25)
[2017-11-22] MEDS: GLIMEPIRIDE 1 MG TABLET PO SCH ×2 (10:10→17:40)
[2017-11-22] MEDS: LEVOFLOXACIN 500 MG TABLET PO SCH (10:10)
[2017-11-22] MEDS: PANTOPRAZOLE SODIUM 40 MG VIAL IV SCH (10:11)
[2017-11-22] MEDS: NICOTINE 21 MG/24 HR PATCH.TD24 TD SCH (10:12)
[2017-11-22] MEDS ORDERED: METHYLPREDNISOLONE INJ 40 MG/1 ML SDV IV SCH (22:00)
[2017-11-22] MEDS: MONTELUKAST SODIUM 10 MG TABLET PO SCH (22:25)
[2017-11-23] MEDS: IPRATROPIUM/ALBUTEROL 0.5-2.5 MG/3 ML AMPUL NEB SCH ×4 (02:04→19:34)
[2017-11-23] MEDS: GUAIFENESIN SYRP 200 MG/10 ML UDC PO PRN (02:37)
[2017-11-23] MEDS: BUDESONIDE NEB 0.5 MG/2 ML AMPUL NEB SCH ×2 (08:11→19:34)
[2017-11-23] MEDS: METOCLOPRAMIDE HCL 10 MG TABLET PO SCH ×4 (08:38→22:52)
[2017-11-23] MEDS: INSULIN LISPRO 100 UNIT/ML 3 ML VIAL SUBCUT PRN ×3 (08:49→17:49)
[2017-11-23] MEDS ORDERED: PREDNISONE 20 MG TABLET PO ONE (09:00)
[2017-11-23] MEDS: LACTOBACILLUS ACIDOPHILUS 250 MG TAB PO SCH (09:10)
[2017-11-23] MEDS: PANTOPRAZOLE SODIUM 40 MG VIAL IV SCH (09:10)
[2017-11-23] MEDS: FLUTICASONE NASAL SPRAY 50 MCG/SPRY 120 SPRAY/16 GM NASL SCH ×2 (09:10→23:04)
[2017-11-23] MEDS: LEVOFLOXACIN 500 MG TABLET PO SCH (09:11)
[2017-11-23] MEDS: GLIMEPIRIDE 1 MG TABLET PO SCH ×2 (09:11→17:49)
[2017-11-23] MEDS: GUAIFENESIN 600 MG TABLET.SA PO SCH (09:12)
[2017-11-23] MEDS: NICOTINE 21 MG/24 HR PATCH.TD24 TD SCH (09:13)
--- NOTE | 2017-11-23 14:54 | RADIOLOGY REPORT (SQ) ---
EXAM DESCRIPTION: CHEST SINGLE VIEW COMPLETED DATE/TIME: 11/23/2017 2:43 pm REASON FOR STUDY: Shortness of breath. COMPARISON: Chest x-ray 11/18/2017. EXAM PARAMETERS: NUMBER OF VIEWS: One view. TECHNIQUE: Single frontal radiographic view of the chest acquired. RADIATION DOSE: NA LIMITATIONS: None. FINDINGS: LUNGS AND PLEURA: Patchy ground-glass opacities are seen at the bilateral lung bases. No sizable pleural effusion or pneumothorax. MEDIASTINUM AND HILAR STRUCTURES: No masses. Contour normal. HEART AND VASCULAR STRUCTURES: The heart is upper normal limit in size. There is no overt vascular c ongestion. BONES: Multilevel degenerative changes in the spine. HARDWARE: Partially visualized orthopedic hardware at the lower cervical spine. IMPRESSION: Patchy bibasilar ground-glass opacities, may represent atelectasis or pneumonia. TECHNICAL DOCUMENTATION: JOB ID: [id number] [employer]- All Rights Reserved
[2017-11-23] MEDS: BENZONATATE 100 MG CAPSULE PO SCH ×2 (15:15→22:52)
[2017-11-23] MEDS: ACETYLCYSTEINE 20% SOLN 800 MG/4 ML VIAL.NEB NEB SCH (19:34)
[2017-11-23] MEDS: MONTELUKAST SODIUM 10 MG TABLET PO SCH (22:52)
[2017-11-24] MEDS: BENZOCAINE/MENTHOL SORE THROAT LOZENGE BUCCAL PRN (01:02)
[2017-11-24] MEDS: IPRATROPIUM/ALBUTEROL 0.5-2.5 MG/3 ML AMPUL NEB SCH ×4 (02:10→20:18)
[2017-11-24] MEDS: BENZONATATE 100 MG CAPSULE PO SCH ×3 (05:08→22:33)
[2017-11-24] MEDS ORDERED: PREDNISONE 20 MG TABLET PO SCH ×2 (08:00)
[2017-11-24] MEDS: METOCLOPRAMIDE HCL 10 MG TABLET PO SCH ×4 (08:16→22:34)
[2017-11-24] MEDS: BUDESONIDE NEB 0.5 MG/2 ML AMPUL NEB SCH ×2 (08:23→20:18)
[2017-11-24] MEDS: ACETYLCYSTEINE 20% SOLN 800 MG/4 ML VIAL.NEB NEB SCH ×2 (08:23→20:18)
[2017-11-24] MEDS: LEVOFLOXACIN 500 MG TABLET PO SCH (10:00)
[2017-11-24] MEDS: LACTOBACILLUS ACIDOPHILUS 250 MG TAB PO SCH (10:00)
[2017-11-24] MEDS: FLUTICASONE NASAL SPRAY 50 MCG/SPRY 120 SPRAY/16 GM NASL SCH ×2 (10:00→22:34)
[2017-11-24] MEDS: GLIMEPIRIDE 1 MG TABLET PO SCH ×2 (10:00→17:28)
[2017-11-24] MEDS: PANTOPRAZOLE SODIUM 40 MG VIAL IV SCH (10:00)
[2017-11-24] MEDS: NICOTINE 21 MG/24 HR PATCH.TD24 TD SCH (10:02)
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
[2017-11-24] MEDS: INSULIN LISPRO 100 UNIT/ML 3 ML VIAL SUBCUT PRN ×3 (13:05→22:37)
[2017-11-24 14:03] LABS: ABSOLUTE LYMPHOCYTES (AUTO) 0.6 10^3/uL (0.5-4.7); ABSOLUTE MONOCYTES (AUTO) 0.4 10^3/uL (0.1-1.4); ABSOLUTE NEUT (AUTO) 9.1 10^3/uL (1.7-8.2); EOSINOPHILS % (AUTO) 0.1 % (0-6); HEMATOCRIT 44.7 % (36.0-47.0); HEMOGLOBIN 14.7 g/dL (12.0-15.5); LYMPHOCYTES % (AUTO) 5.5 % (13-45); MEAN CORPUSCULAR HEMOGLOBIN 29.4 pg (27.0-33.4); MEAN CORPUSCULAR VOLUME 89 fl (80-97); MONOCYTES % (AUTO) 4.2 % (3-13); PLATELET COUNT 242 10^3/uL (150-450); RED BLOOD COUNT 5.01 10^6/uL (3.72-5.28); RED CELL DISTRIBUTION WIDTH 14.8 % (11.5-14.0); SEGMENTED NEUTROPHILS % (AUTO) 90.2 % (42-78); TOTAL CELLS COUNTED % (AUTO) 100 %; WHITE BLOOD COUNT 10.1 10^3/uL (4.0-10.5)
[2017-11-24 14:28] LABS: BLOOD UREA NITROGEN 14 mg/dL (7-20); CALCIUM 9.3 mg/dL (8.4-10.2); CHLORIDE 93 mmol/L (98-107); GLUCOSE 214 mg/dL (75-110); POTASSIUM 4.8 mmol/L (3.6-5.0)
[2017-11-24 14:41] LABS: CARBON DIOXIDE 32 mmol/L (22-30); SODIUM 129.7 mmol/L (137-145)
[2017-11-24 14:42] LABS: ANION GAP 5 (5-19)
--- NOTE | 2017-11-24 14:42 | PDOC PROGRESS REPORT ---
Subjective Progress Note for:: 11/24/17 Subjective:: The patient remains in the hospital for a COPD exacerbation. She is only minimally improved when compared to admission. Reason For Visit: COPD EXACERBATION. DIABETES Physical Exam Vital Signs: Temp Pulse Resp BP Pulse Ox 97.4 F 95 18 118/64 94 11/24/17 12:54 11/24/17 13:55 11/24/17 13:34 11/24/17 12:54 11/24/17 12:54 Intake & Output 11/23/17 11/24/17 11/25/17 06:59 06:59 06:59 Intake Total 1116 1352 980 Balance 1116 1352 980 Weight 116.9 kg Additional comments: The patient is a morbidly obese white female. She is noted to have normal cognition. Her neurological exam is unremarkable. Her facial appearance is unremarkable. She is noted to have crackles over the left anterior chest. Otherwise, she has some end inspiratory wheezing noted. Her cardiac exam is regular without murmurs, gallops or rubs. The abdomen is obese but soft with normoactive bowel sounds. The lower extremities do not demonstrate any significant edema. The skin is warm, dry and intact without lesions or rashes. Results Laboratory Results: 11/24/17 13:27 11/24/17 13:27 WBC 10.1 RBC 5.01 Hgb 14.7 Hct 44.7 MCV 89 MCH 29.4 MCHC 33.0 RDW 14.8 H Plt Count 242 Seg Neutrophils % 90.2 H Lymphocytes % 5.5 L Monocytes % 4.2 Eosinophils % 0.1 Basophils % 0.0 Absolute Neutrophils 9.1 H Absolute Lymphocytes 0.6 Absolute Monocytes 0.4 Absolute Eosinophils 0.0 Absolute Basophils 0.0 11/18/17 20:50 Troponin I 0.015 Impressions: Abdomen/Pelvis CT 11/18/17 18:13 IMPRESSION: 1. COLONIC DIVERTICULOSIS. NO CT FINDINGS OF ACUTE DIVERTICULITIS. NO OTHER SIGNIFICANT OR ACUTE PROCESS IN THE ABDOMEN OR PELVIS. 2. PROMINENT FATTY DENSITY BETWEEN THE RIGHT ATRIUM AND LEFT ATRIUM. THIS COULD BE DUE TO LIPOMATOSIS HYPERTROPHY OR LIPOMA. CONSIDER FURTHER EVALUATION WITH ECHOCARDIOGRAPHY. Chest X-Ray 11/23/17 00:00 IMPRESSION: Patchy bibasilar ground-glass opacities, may represent atelectasis or pneumonia. Assessment & Plan - Diagnosis (1) Acute and chronic respiratory failure with hypoxia Is this a current diagnosis for this admission?: Yes Plan: Continue supplemental oxygen and wean as tolerated. (2) Acute bronchitis Is this a current diagnosis for this admission?: Yes Plan: Continue antibiotics, systemic corticosteroids and bronchodilators. (3) COPD with exacerbation Is this a current diagnosis for this admission?: Yes Plan: As above. (4) Diabetes Is this a current diagnosis for this admission?: Yes (5) Epigastric pain Is this a current diagnosis for this admission?: Yes Plan: Resolved. (6) Morbid obesity Is this a current diagnosis for this admission?: Yes (7) Tobacco dependency Is this a current diagnosis for this admission?: Yes - Time Time Spent with patient: 25-34 minutes - Inpatient Certification Medical Necessity: Need for Nebulizer Therapy and Monitoring of Response - The patient is only slowly getting better. I do think she would benefit from seeing a coastal and estuary specialist upon discharge. Arrangements can be made upon discharge. At this time I would like to start physical therapy but due to her persistently poor respiratory status I will hold off and reevaluate the need for physical therapy tomorrow.
[2017-11-24] MEDS ORDERED: PREDNISONE 20 MG TABLET PO ONE (16:00)
[2017-11-24 16:59] LABS: INTERNATIONAL RATION (INR) 0.91; PROTHROMBIN TIME 12.9 SEC (11.4-15.4)
[2017-11-24 17:00] LABS: PARTIAL THROMBOPLASTIN TIME 30.4 SEC (23.5-35.8)
[2017-11-24] MEDS: MONTELUKAST SODIUM 10 MG TABLET PO SCH (22:34)
[2017-11-25] MEDS: IPRATROPIUM/ALBUTEROL 0.5-2.5 MG/3 ML AMPUL NEB SCH ×4 (02:36→20:12)
[2017-11-25 05:57] LABS: ANION GAP 6 (5-19); BLOOD UREA NITROGEN 15 mg/dL (7-20); CALCIUM 9.4 mg/dL (8.4-10.2); CARBON DIOXIDE 33 mmol/L (22-30); CHLORIDE 94 mmol/L (98-107); GLUCOSE 217 mg/dL (75-110); POTASSIUM 4.8 mmol/L (3.6-5.0); SODIUM 133.3 mmol/L (137-145)
[2017-11-25] MEDS: BENZONATATE 100 MG CAPSULE PO SCH ×3 (06:16→23:06)
[2017-11-25 07:06] LABS: APPEARANCE,URINE CLEAR; BILIRUBIN,URINE NEGATIVE (NEGATIVE); COLOR,URINE YELLOW; GLUCOSE, URINE 50 mg/dL (NEGATIVE); KETONES,URINE NEGATIVE (NEGATIVE); LEUKOCYTE ESTERASE,URINE NEGATIVE (NEGATIVE); NITRITE,URINE NEGATIVE (NEGATIVE); PROTEIN,URINE NEGATIVE (NEGATIVE); URINE SPECIFIC GRAVITY 1.013; UROBILINOGEN,URINE NEGATIVE mg/dL (<2.0)
[2017-11-25 07:19] LABS: A TYPE INFLUENZA AG NEGATIVE (NEGATIVE); B INFLUENZA AG NEGATIVE (NEGATIVE)
[2017-11-25] MEDS: METOCLOPRAMIDE HCL 10 MG TABLET PO SCH ×4 (08:21→23:08)
[2017-11-25] MEDS: BUDESONIDE NEB 0.5 MG/2 ML AMPUL NEB SCH ×2 (09:25→20:12)
[2017-11-25] MEDS: ACETYLCYSTEINE 20% SOLN 800 MG/4 ML VIAL.NEB NEB SCH (09:26)
[2017-11-25] MEDS ORDERED: PREDNISONE 20 MG TABLET PO SCH (10:00)
[2017-11-25] MEDS: LEVOFLOXACIN 500 MG TABLET PO SCH (10:37)
[2017-11-25] MEDS: LACTOBACILLUS ACIDOPHILUS 250 MG TAB PO SCH (10:37)
[2017-11-25] MEDS: ENOXAPARIN SODIUM INJ 40 MG/0.4 ML DISP.SYRIN SUBCUT SCH (10:38)
[2017-11-25] MEDS: GLIMEPIRIDE 1 MG TABLET PO SCH ×2 (10:45→17:30)
[2017-11-25] MEDS: FLUTICASONE NASAL SPRAY 50 MCG/SPRY 120 SPRAY/16 GM NASL SCH ×2 (10:49→23:07)
[2017-11-25] MEDS: NICOTINE 21 MG/24 HR PATCH.TD24 TD SCH (10:52)
[2017-11-25] MEDS: BENZOCAINE/MENTHOL SORE THROAT LOZENGE BUCCAL PRN ×4 (10:57→23:23)
--- NOTE | 2017-11-25 12:44 | PDOC PROGRESS REPORT ---
Subjective Progress Note for:: 11/25/17 Subjective:: The patient remains in the hospital for a COPD exacerbation. Today, she feels that she is finally starting to turn the corner and starting to feel better. She is asking if she could take a shower and she feels that she can start to participate with physical therapy. Reason For Visit: COPD EXACERBATION. DIABETES Physical Exam Vital Signs: Temp Pulse Resp BP Pulse Ox 97.2 F 108 H 16 115/64 91 L 11/25/17 09:05 11/25/17 09:25 11/25/17 09:25 11/25/17 09:05 11/25/17 09:25 Intake & Output 11/24/17 11/25/17 11/26/17 06:59 06:59 06:59 Intake Total 1352 2298 Balance 1352 2298 Weight 113.2 kg Additional comments: Today, the patient was sitting up to a chair. She appeared to be in better spirits. Her cognition and mentation are normal. Her lungs demonstrate bilateral wheezing but it is less severe than yesterday. Her cardiac exam is regular without murmurs, gallops or rubs. The abdomen is soft, flat and benign. The abdomen is obese. The lower extremities demonstrate trace edema. The skin is warm, dry and intact without lesions or rashes. Results Laboratory Results: 11/24/17 13:27 11/25/17 04:29 11/24/17 11/24/17 11/25/17 13:27 13:27 04:29 WBC 10.1 RBC 5.01 Hgb 14.7 Hct 44.7 MCV 89 MCH 29.4 MCHC 33.0 RDW 14.8 H Plt Count 242 Seg Neutrophils % 90.2 H Lymphocytes % 5.5 L Monocytes % 4.2 Eosinophils % 0.1 Basophils % 0.0 Absolute Neutrophils 9.1 H Absolute Lymphocytes 0.6 Absolute Monocytes 0.4 Absolute Eosinophils 0.0 Absolute Basophils 0.0 Sodium 129.7 L 133.3 L Potassium 4.8 4.8 Chloride 93 L 94 L Carbon Dioxide 32 H 33 H Anion Gap 5 6 BUN 14 15 Creatinine 0.62 0.71 Est GFR ( Amer) > 60 > 60 Est GFR (Non-Af Amer) > 60 > 60 Glucose 214 H 217 H Calcium 9.3 9.4 Magnesium 2.0 Urine Color Urine Appearance Urine pH Ur Specific Oakes Urine Protein Urine Glucose (UA) Urine Ketones Urine Blood Urine Nitrite Ur Leukocyte Esterase Urine WBC (Auto) Urine RBC (Auto) 11/25/17 06:35 WBC RBC Hgb Hct MCV MCH MCHC RDW Plt Count Seg Neutrophils % Lymphocytes % Monocytes % Eosinophils % Basophils % Absolute Neutrophils Absolute Lymphocytes Absolute Monocytes Absolute Eosinophils Absolute Basophils Sodium Potassium Chloride Carbon Dioxide Anion Gap BUN Creatinine Est GFR ( Amer) Est GFR (Non-Af Amer) Glucose Calcium Magnesium Urine Color YELLOW Urine Appearance CLEAR Urine pH 7.0 Ur Specific [place]akes 1.013 Urine Protein NEGATIVE Urine Glucose (UA) 50 H Urine Ketones NEGATIVE Urine Blood NEGATIVE Urine Nitrite NEGATIVE Ur Leukocyte Esterase NEGATIVE Urine WBC (Auto) 1 Urine RBC (Auto) 1 11/18/17 20:50 Troponin I 0.015 Impressions: Abdomen/Pelvis CT 11/18/17 18:13 IMPRESSION: 1. COLONIC DIVERTICULOSIS. NO CT FINDINGS OF ACUTE DIVERTICULITIS. NO OTHER SIGNIFICANT OR ACUTE PROCESS IN THE ABDOMEN OR PELVIS. 2. PROMINENT FATTY DENSITY BETWEEN THE RIGHT ATRIUM AND LEFT ATRIUM. THIS COULD BE DUE TO LIPOMATOSIS HYPERTROPHY OR LIPOMA. CONSIDER FURTHER EVALUATION WITH ECHOCARDIOGRAPHY. Chest X-Ray 11/23/17 00:00 IMPRESSION: Patchy bibasilar ground-glass opacities, may represent atelectasis or pneumonia. Assessment & Plan - Diagnosis (1) Acute and chronic respiratory failure with hypoxia Is this a current diagnosis for this admission?: Yes Plan: Continue supplemental oxygen and wean as tolerated. Patient is still requiring quite a high liter flow rate at 5 L. (2) Acute bronchitis Is this a current diagnosis for this admission?: Yes Plan: Continue antibiotics, systemic corticosteroids and bronchodilators. (3) COPD with exacerbation Is this a current diagnosis for this admission?: Yes Plan: As above. (4) Diabetes Is this a current diagnosis for this admission?: Yes Plan: The patient is currently on glimepiride and sliding scale insulin. Her sugars have been high, but they are coming down likely due to weaning of the steroids. (5) Epigastric pain Is this a current diagnosis for this admission?: Yes Plan: Resolved. (6) Morbid obesity Is this a current diagnosis for this admission?: Yes (7) Tobacco dependency Is this a current diagnosis for this admission?: Yes - Time Time Spent with patient: 25-34 minutes - Inpatient Certification Medical Necessity: Need for Nebulizer Therapy and Monitoring of Response - The patient may require placement to a [facility] facility. I did ask her to think about what help she may need at home. Her lives at home and is able to assist her somewhat. However, I do not think the patient could go home at this time. I will place an order for discharge planning.
[2017-11-25] MEDS: PREDNISONE 10 MG TABLET PO SCH (17:29)
[2017-11-25] MEDS: INSULIN LISPRO 100 UNIT/ML 3 ML VIAL SUBCUT PRN (23:06)
[2017-11-25] MEDS: MONTELUKAST SODIUM 10 MG TABLET PO SCH (23:07)
[2017-11-26] MEDS: IPRATROPIUM/ALBUTEROL 0.5-2.5 MG/3 ML AMPUL NEB SCH ×4 (03:16→20:35)
[2017-11-26] MEDS: BENZOCAINE/MENTHOL SORE THROAT LOZENGE BUCCAL PRN ×2 (04:06→06:23)
[2017-11-26 04:53] LABS: ANION GAP 8 (5-19); BLOOD UREA NITROGEN 12 mg/dL (7-20); CALCIUM 9.6 mg/dL (8.4-10.2); CARBON DIOXIDE 31 mmol/L (22-30); CHLORIDE 95 mmol/L (98-107); POTASSIUM 4.4 mmol/L (3.6-5.0); SODIUM 134.1 mmol/L (137-145)
[2017-11-26 04:54] LABS: GLUCOSE 167 mg/dL (75-110)
[2017-11-26] MEDS: BENZONATATE 100 MG CAPSULE PO SCH ×3 (06:18→22:11)
[2017-11-26] MEDS: BUDESONIDE NEB 0.5 MG/2 ML AMPUL NEB SCH ×2 (08:11→20:34)
[2017-11-26] MEDS: ENOXAPARIN SODIUM INJ 40 MG/0.4 ML DISP.SYRIN SUBCUT SCH (09:13)
[2017-11-26] MEDS: PREDNISONE 10 MG TABLET PO SCH ×2 (09:13→17:46)
[2017-11-26] MEDS: LACTOBACILLUS ACIDOPHILUS 250 MG TAB PO SCH (09:13)
[2017-11-26] MEDS: GLIMEPIRIDE 1 MG TABLET PO SCH ×2 (09:14→17:46)
[2017-11-26] MEDS: METOCLOPRAMIDE HCL 10 MG TABLET PO SCH ×4 (09:14→22:11)
[2017-11-26] MEDS: LEVOFLOXACIN 500 MG TABLET PO SCH (09:14)
[2017-11-26] MEDS: NICOTINE 21 MG/24 HR PATCH.TD24 TD SCH (09:15)
[2017-11-26] MEDS: FLUTICASONE NASAL SPRAY 50 MCG/SPRY 120 SPRAY/16 GM NASL SCH ×2 (09:15→22:12)
--- NOTE | 2017-11-26 13:54 | PDOC PROGRESS REPORT ---
Subjective Progress Note for:: 11/26/17 Subjective:: The patient remains in the hospital for a COPD exacerbation. Yesterday, she felt that she was finally starting to turn the corner. She worked with physical therapy and was able to ambulate with supplemental oxygen. She also took a shower with supplemental oxygen. Normally, she does not wear oxygen or CPAP mask at home. She did have a sleep study, but, she is not yet aware of the results or whether or not she needs CPAP or BiPAP. She is asking today about a pro-air inhaler and suppositories. Reason For Visit: COPD EXACERBATION. DIABETES Physical Exam Vital Signs: Temp Pulse Resp BP Pulse Ox 97.5 F 52 L 16 132/90 H 98 11/26/17 10:57 11/26/17 10:57 11/26/17 10:57 11/26/17 10:57 11/26/17 10:57 Intake & Output 11/25/17 11/26/17 11/27/17 06:59 06:59 06:59 Intake Total 2298 642 Balance 2298 642 Weight 113.2 kg Additional comments: The patient continues to appear improved. Her cognition and mentation are appropriate. She does not appear to be in any distress. Today, she has clear lung fuentes bilaterally. Her cardiac exam is regular without murmurs, gallops or rubs. The abdomen is soft and flat. The abdomen is obese. The lower extremities do not demonstrate any pitting edema. The skin is clean, warm, dry and intact. Results Laboratory Results: 11/24/17 13:27 11/26/17 04:01 11/26/17 04:01 Sodium 134.1 L Potassium 4.4 Chloride 95 L Carbon Dioxide 31 H Anion Gap 8 BUN 12 Creatinine 0.66 Est GFR ( Amer) > 60 Est GFR (Non-Af Amer) > 60 Glucose 167 H Calcium 9.6 11/18/17 20:50 Troponin I 0.015 Impressions: Abdomen/Pelvis CT 11/18/17 18:13 IMPRESSION: 1. COLONIC DIVERTICULOSIS. NO CT FINDINGS OF ACUTE DIVERTICULITIS. NO OTHER SIGNIFICANT OR ACUTE PROCESS IN THE ABDOMEN OR PELVIS. 2. PROMINENT FATTY DENSITY BETWEEN THE RIGHT ATRIUM AND LEFT ATRIUM. THIS COULD BE DUE TO LIPOMATOSIS HYPERTROPHY OR LIPOMA. CONSIDER FURTHER EVALUATION WITH ECHOCARDIOGRAPHY. Chest X-Ray 11/23/17 00:00 IMPRESSION: Patchy bibasilar ground-glass opacities, may represent atelectasis or pneumonia. Assessment & Plan - Diagnosis (1) Acute and chronic respiratory failure with hypoxia Is this a current diagnosis for this admission?: Yes Plan: Continue supplemental oxygen and wean as tolerated. Oxygen was weaned yesterday. (2) Acute bronchitis Is this a current diagnosis for this admission?: Yes Plan: Continue antibiotics, systemic corticosteroids and bronchodilators. (3) COPD with exacerbation Is this a current diagnosis for this admission?: Yes Plan: As above. (4) Diabetes Is this a current diagnosis for this admission?: Yes Plan: The patient is currently on glimepiride and sliding scale insulin. Her sugars have been high, but they are coming down likely due to weaning of the steroids. (5) Epigastric pain Is this a current diagnosis for this admission?: Yes Plan: Resolved. (6) Morbid obesity Is this a current diagnosis for this admission?: Yes (7) Tobacco dependency Is this a current diagnosis for this admission?: Yes - Time Time Spent with patient: 15-24 minutes - Inpatient Certification Medical Necessity: Need Close Monitoring Due to Risk of Patient Decompensation - Plan Summary Plan Summary: The patient is nearing readiness for discharge. She did do better yesterday with physical therapy. I will inquire as to any specific needs at home. Discharge planning consult is underway.
[2017-11-26] MEDS ORDERED: BISACODYL 10 MG SUPP.RECT PR PRN (13:56)
[2017-11-26] MEDS ORDERED: ALBUTEROL SULFATE HFA (90 MCG/PUFF) 200 PUFF/8.5 GM MDI IH PRN (14:00)
[2017-11-26] MEDS: INSULIN LISPRO 100 UNIT/ML 3 ML VIAL SUBCUT PRN ×2 (17:46→22:12)
[2017-11-26] MEDS ORDERED: GLYCERIN/WITCH HAZEL LEAF 1 EACH MED..PAD TP PRN (20:50)
[2017-11-26] MEDS: MONTELUKAST SODIUM 10 MG TABLET PO SCH (22:11)
[2017-11-27] MEDS: IPRATROPIUM/ALBUTEROL 0.5-2.5 MG/3 ML AMPUL NEB SCH ×3 (01:55→13:49)
[2017-11-27 05:25] LABS: ANION GAP 8 (5-19); BLOOD UREA NITROGEN 14 mg/dL (7-20); CALCIUM 9.6 mg/dL (8.4-10.2); CARBON DIOXIDE 31 mmol/L (22-30); CHLORIDE 95 mmol/L (98-107); GLUCOSE 182 mg/dL (75-110); POTASSIUM 4.7 mmol/L (3.6-5.0); SODIUM 133.8 mmol/L (137-145)
[2017-11-27] MEDS: BENZONATATE 100 MG CAPSULE PO SCH (06:51)
[2017-11-27] MEDS: BUDESONIDE NEB 0.5 MG/2 ML AMPUL NEB SCH (08:00)
[2017-11-27] MEDS: METOCLOPRAMIDE HCL 10 MG TABLET PO SCH ×2 (08:47→11:56)
[2017-11-27] MEDS: PREDNISONE 10 MG TABLET PO SCH (09:21)
[2017-11-27] MEDS: LACTOBACILLUS ACIDOPHILUS 250 MG TAB PO SCH (09:21)
[2017-11-27] MEDS: FLUTICASONE NASAL SPRAY 50 MCG/SPRY 120 SPRAY/16 GM NASL SCH (09:21)
[2017-11-27] MEDS: GLIMEPIRIDE 1 MG TABLET PO SCH (09:21)
[2017-11-27] MEDS: LEVOFLOXACIN 500 MG TABLET PO SCH (09:21)
[2017-11-27] MEDS: ENOXAPARIN SODIUM INJ 40 MG/0.4 ML DISP.SYRIN SUBCUT SCH (09:22)
[2017-11-27] MEDS: NICOTINE 21 MG/24 HR PATCH.TD24 TD SCH (09:22)
[2017-11-27] MEDS: INSULIN LISPRO 100 UNIT/ML 3 ML VIAL SUBCUT PRN (11:56)
--- NOTE | 2017-11-27 13:15 | PDOC DISCHARGE SUMMARY ---
General - Admit/Disc Date/PCP Admission Date/Primary Care Provider: 11/18/17 20:19 Discharge Date: 11/27/17 - Discharge Diagnosis (1) Acute and chronic respiratory failure with hypoxia Is this a current diagnosis for this admission?: Yes (2) Acute bronchitis Is this a current diagnosis for this admission?: Yes (3) COPD with exacerbation Is this a current diagnosis for this admission?: Yes (4) Diabetes Is this a current diagnosis for this admission?: Yes (5) Epigastric pain Is this a current diagnosis for this admission?: Yes (6) Morbid obesity Is this a current diagnosis for this admission?: Yes (7) Tobacco dependency Is this a current diagnosis for this admission?: Yes - Additional Information Resuscitation Status: Full Code Discharge Diet: Diabetic Discharge Activity: Balance Activity w/Rest Prescriptions: Levofloxacin [Levaquin 500 mg Tablet] 500 mg PO DAILY 5 Days #5 tablet Montelukast Sodium [Singulair 10 mg Tablet] 10 mg PO QHS 30 Days #30 tablet Prednisone [Deltasone 10 mg Tablet] 10 mg PO DAILY 5 Days #5 tablet Home Medications: Albuterol Sulfate [Albuterol Sulfate 2.5mg/3 mL] 1 vial NEB QIDP PRN 11/19/17 Atorvastatin Calcium [Lipitor 40 mg Tablet] 40 mg PO QHS 11/19/17 Budesonide/Formoterol Fumarate [Symbicort 160-4.5 Mcg Inhaler] 1 puff IH DAILY 11/19/17 Glipizide [Glipizide Xl] 10 mg PO [id number] 11/19/17 Levothyroxine Sodium [Synthroid] 0.125 mcg PO DAILY 11/19/17 Oxybutynin Chloride [Ditropan 5 mg Tablet] 5 mg PO BID 11/19/17 Sertraline HCl [Zoloft] 100 mg PO DAILY 11/19/17 Tiotropium [place] [Spiriva Handihaler 18 mcg/dose (30 Dose)] 1 cap IH DAILY Albuterol Sulfate [Proair HFA Inhalation Aerosol 8.5 gm MDI] 2 puff IH Q6HP PRN hfa.aer.[email or web address] 11/27/17 Benzocaine/Menthol [Chloraseptic Sore Throat Lozenge] 1 each BUCCAL Q2HP PRN lozenge 11/27/17 Bisacodyl [Dulcolax 10 mg Supp.rect] 10 mg LA DAILYP PRN supp.rect 11/27/17 Fluticasone Propionate [Flonase Nasal [place] 50 Mcg/[place] 16 gm] 2 spray NASL Q12 spray.pump 11/27/17 Levofloxacin [Levaquin 500 mg Tablet] 500 mg PO DAILY 5 Days #5 tablet 11/27/17 Montelukast Sodium [Singulair 10 mg Tablet] 10 mg PO QHS 30 Days #30 tablet Nicotine [Nicoderm 21 mg/24 Hr Transderm Patch] 1 each TD DAILY patch.[id number] Prednisone [Deltasone 10 mg Tablet] 10 mg PO DAILY 5 Days #5 tablet 11/27/17 History of Present Illness History of Present Illness: JUAN MCGRATH is a 72 year old female with past medical history of diabetes, hypothyroidism, COPD, chronic bronchitis, tobacco abuse and morbid obesity. She presents with 4 days of sore throat, uncontrolled acid reflux, shortness of breath and a nonproductive cough. She denies chest pain nausea and vomiting. Her has similar symptoms and is hospitalized for the same. In the emergency room she is found to have oxygen saturations of only 90% on room air after several albuterol Atrovent treatments and Solu-Medrol. She is referred to the hospitalist for admission. Hospital Course Hospital Course: Patient presented to the hospital with acute on chronic respiratory failure secondary to a COPD exacerbation triggered by bronchitis. She was treated with intravenous Solu-Medrol and Levaquin followed by oral prednisone and Levaquin. She did well. We were able to wean her oxygen to room air. She has been quite debilitated and weak during this hospitalization. We discussed the possibility of a longterm facility, however, she was able to ambulate yesterday and shower with minimal assistance and now she desires to go home. She does agree that she is somewhat weak and has requested a walker, bedside commode with shower chair. These adjuncts will be very useful for her and discharge planning will help me to provide them to her. Physical Exam Vital Signs: Temp Pulse Resp BP Pulse Ox 98.4 F 71 18 112/63 89 L 11/27/17 07:22 11/27/17 11:07 11/27/17 11:07 11/27/17 11:07 11/27/17 11:07 Intake & Output 11/26/17 11/27/17 11/28/17 06:59 06:59 06:59 Intake Total 642 520 Output Total 200 Balance 642 320 Additional comments: The patient has improved dramatically in the last 48 hours. Her cognition and mentation have remained normal. Her strength does look to be improved. Her lung fuentes demonstrate persistent wheezing but it has improved substantially. Her cardiac exam is regular without murmurs, gallops or rubs. The abdomen is obese but soft. Bowel sounds are present. The lower extremities do not demonstrate pitting edema. The skin is clean, warm, dry and intact without lesions or rashes. Results Laboratory Results: 11/24/17 13:27 11/27/17 04:24 11/27/17 04:24 Sodium 133.8 L Potassium 4.7 Chloride 95 L Carbon Dioxide 31 H Anion Gap 8 BUN 14 Creatinine 0.65 Est GFR ( Amer) > 60 Est GFR (Non-Af Amer) > 60 Glucose 182 H Calcium 9.6 11/18/17 20:50 Troponin I 0.015 Impressions: Abdomen/Pelvis CT 11/18/17 18:13 IMPRESSION: 1. COLONIC DIVERTICULOSIS. NO CT FINDINGS OF ACUTE DIVERTICULITIS. NO OTHER SIGNIFICANT OR ACUTE PROCESS IN THE ABDOMEN OR PELVIS. 2. PROMINENT FATTY DENSITY BETWEEN THE RIGHT ATRIUM AND LEFT ATRIUM. THIS COULD BE DUE TO LIPOMATOSIS HYPERTROPHY OR LIPOMA. CONSIDER FURTHER EVALUATION WITH ECHOCARDIOGRAPHY. Chest X-Ray 11/23/17 00:00 IMPRESSION: Patchy bibasilar ground-glass opacities, may represent atelectasis or pneumonia. Plan Discharge Plan: Follow-up with primary medicare biller in 1-2 weeks. Time Spent: Less than 30 Minutes
[2017-11-27 13:52] VITALS: BP 128/62
== END 2017-11-27 14:55 | disposition home health service (06) | DRG 190 ==
LOC: ER 14:48 → OBSVTOIN 20:19 → EH 20:19 → 4N 22:00
PROVIDERS: ADMIT Internal Medicine; ATTEND Internal Medicine
DX: J44.0 Chronic obstructive pulmonary disease with (acute) lower respiratory infection (principal); J96.21 Acute and chronic respiratory failure with hypoxia; Z68.41 Body mass index [BMI] 40.0-44.9, adult; E87.1 Hypo-osmolality and hyponatremia; J44.1 Chronic obstructive pulmonary disease with (acute) exacerbation; J20.9 Acute bronchitis, unspecified; E66.01 Morbid (severe) obesity due to excess calories; D64.9 Anemia, unspecified; F17.200 Nicotine dependence, unspecified, uncomplicated; K21.9 Gastro-esophageal reflux disease without esophagitis; E03.9 Hypothyroidism, unspecified; Z88.2 Allergy status to sulfonamides; Z88.6 Allergy status to analgesic agent
CPT/HCPCS: 36415; 71045; 74176; 80048; 80053; 81001; 82803; 82962; 83690; 83735; 84484; 85025; 85610; 85730; 87804; 93005; 93010; 93306; 94640; 94660; 94667; 94668; 94799; 96372; 96374; 99285; G8978-GP; G8979-GP; J0456; J0500; J1644; J1650; J1815; J2405; J2920; J3490; J7060; J7512; J7620; S0164

== ENCOUNTER 2019-11-16 12:11 | Emergency (ER) | payer MEDICARE ==
[2019-11-16 13:11] LABS: ABSOLUTE EOSINOPHILS # (AUTO) 0.2 10^3/uL (0.0-0.6); ABSOLUTE LYMPHOCYTES (AUTO) 1.6 10^3/uL (0.5-4.7); ABSOLUTE MONOCYTES (AUTO) 0.4 10^3/uL (0.1-1.4); ABSOLUTE NEUT (AUTO) 5.2 10^3/uL (1.7-8.2); BASOPHILS % (AUTO) 0.5 % (0-2); EOSINOPHILS % (AUTO) 2.2 % (0-6); HEMATOCRIT 46.8 % (36.0-47.0); HEMOGLOBIN 15.8 g/dL (12.0-15.5); LYMPHOCYTES % (AUTO) 21.6 % (13-45); MEAN CORPUSCULAR HEMOGLOBIN 29.5 pg (27.0-33.4); MEAN CORPUSCULAR HGB CONC 33.7 g/dL (32.0-36.0); MEAN CORPUSCULAR VOLUME 87 fl (80-97); MONOCYTES % (AUTO) 5.6 % (3-13); PLATELET COUNT 297 10^3/uL (150-450); RED BLOOD COUNT 5.36 10^6/uL (3.72-5.28); RED CELL DISTRIBUTION WIDTH 16.7 % (11.5-14.0); SEGMENTED NEUTROPHILS % (AUTO) 70.1 % (42-78); TOTAL CELLS COUNTED % (AUTO) 100 %; WHITE BLOOD COUNT 7.4 10^3/uL (4.0-10.5)
[2019-11-16 13:34] LABS: ALBUMIN 4.1 g/dL (3.5-5.0); ALKALINE PHOSPHATASE 95 U/L (38-126); ANION GAP 8 (5-19); ASPARTATE AMINO TRANSFERASE 17 U/L (14-36); BILIRUBIN,DIRECT 0.3 mg/dL (0.0-0.4); BILIRUBIN,TOTAL 0.5 mg/dL (0.2-1.3); BLOOD UREA NITROGEN 15 mg/dL (7-20); CALCIUM 10.1 mg/dL (8.4-10.2); CARBON DIOXIDE 32 mmol/L (22-30); CHLORIDE 98 mmol/L (98-107); CREATINE KINASE 23 U/L (30-135); GLUCOSE 146 mg/dL (75-110); POTASSIUM 5.3 mmol/L (3.6-5.0); TOTAL PROTEIN 7.7 g/dL (6.3-8.2)
[2019-11-16] MEDS ORDERED: KETOROLAC TROMETHAMINE INJ/PF 30 MG/1 ML SDV IV ONE (13:39)
[2019-11-16 13:53] LABS: CREATINE KINASE MB 0.48 ng/mL (<4.55)
[2019-11-16 13:55] LABS: TROPONIN I < 0.012 ng/mL
[2019-11-16 13:56] LABS: APPEARANCE,URINE CLEAR; BILIRUBIN,URINE NEGATIVE (NEGATIVE); COLOR,URINE YELLOW; GLUCOSE, URINE NEGATIVE (NEGATIVE); KETONES,URINE NEGATIVE (NEGATIVE); LEUKOCYTE ESTERASE,URINE NEGATIVE (NEGATIVE); NITRITE,URINE NEGATIVE (NEGATIVE); PROTEIN,URINE NEGATIVE (NEGATIVE); URINE SPECIFIC GRAVITY 1.014; UROBILINOGEN,URINE NEGATIVE mg/dL (<2.0)
--- NOTE | 2019-11-16 14:21 | RADIOLOGY REPORT (SQ) ---
EXAM DESCRIPTION: CT HEAD WITHOUT COMPLETED DATE/TIME: 11/16/2019 2:10 pm REASON FOR STUDY: pain COMPARISON: None. TECHNIQUE: Axial images acquired through the brain without intravenous contrast. Images reviewed wi th bone, brain and subdural windows. Additional sagittal and coronal reconstructions were generated. Images stored on PACS. All CT scanners at this facility use dose modulation, iterative reconstruction, and/or weight based d osing when appropriate to reduce radiation dose to as low as reasonably achievable (ALARA). [facility]: Dose Right [facility]: CareDose [facility]: Dose Right [facility]: Teradose 4D [facility]: FreeWheel RADIATION DOSE: CT Rad equipment meets quality standard of care and radiation dose reduction techniq ues were employed. CTDIvol: 53.2 mGy. DLP: 1070 mGy-cm. LIMITATIONS: None. FINDINGS: The confluent areas of hypoattenuation within the supratentorial periventricular and subco rtical white matter are favored to represent the sequela of chronic microvascular ischemia. There is no acute intracranial hemorrhage, vascular territorial infarct, extra-axial fluid collection, mass e ffect or midline shift. There is no effacement of the cerebral sulci or basal subarachnoid cisterns. The cancino-white matter differentiation is preserved. The caliber the ventricles is concordant with the degree of sulcation. The orbits are intact. The globes are aphakic. The paranasal sinuses are clear. There is no fractu re of the calvarium. IMPRESSION: No acute intracranial abnormality. EVIDENCE OF ACUTE STROKE: NO. COMMENT: Quality ID # [id number]: Final reports with documentation of one or more dose reduction techniques (e.g., Automated exposure control, adjustment of the mA and/or kV according to patient size, use of iterative reconstruction technique) TECHNICAL DOCUMENTATION: JOB ID: [id number] [employer]- All Rights Reserved Reading location - IP/workstation name: [email or web address]
--- NOTE | 2019-11-16 14:37 | RADIOLOGY REPORT (SQ) ---
EXAM DESCRIPTION: SHOULDER RIGHT 2 OR MORE VIEWS COMPLETED DATE/TIME: 11/16/2019 2:17 pm REASON FOR STUDY: pain COMPARISON: None. NUMBER OF VIEWS: Three views. TECHNIQUE: Internal rotation, external rotation, and Y view images acquired of the right shoulder. LIMITATIONS: None. FINDINGS: MINERALIZATION: Normal. BONES: There is deformity of the right humeral head suggesting a prior injury. JOINTS: There is bony overgrowth of the acromioclavicular joint. VISUALIZED LUNGS AND RIBS: No pneumothorax. No rib fracture. SOFT TISSUES: No radiopaque foreign body. OTHER: No other significant finding. IMPRESSION: Deformity from a prior fracture. AC joint degenerative changes. No acute finding. TECHNICAL DOCUMENTATION: JOB ID: [id number] [employer]- All Rights Reserved Reading location - IP/workstation name: [email or web address]
--- NOTE | 2019-11-16 16:01 | EKG REPORT ---
SEVERITY:- ABNORMAL ECG - SINUS OR ECTOPIC ATRIAL RHYTHM ATRIAL PREMATURE COMPLEX INFERIOR INFARCT, AGE INDETERMINATE CONSIDER ANTERIOR INFARCT : Confirmed by: Garry Chaves MD 16-Nov-2019 16:00:49
--- NOTE | 2019-11-16 16:08 | ER Document Report ---
ED General - General Chief Complaint: Headache Stated Complaint: WEAKNESS,HEADACHE Time Seen by Provider: 11/16/19 13:08 Primary Care Provider: UZMA DING PA-C [Primary Care Provider] - Follow up as needed Mode of Arrival: Ambulatory Information source: Patient TRAVEL OUTSIDE OF THE [place] IN LAST 30 DAYS: No - HPI Notes: Patient has 2 concerns today. First concern is a left-sided temporal headache. This started yesterday. It started gradually. It is a throbbing sensation. She states "it is not a headache". She states that it feels like someone kicked her in the left side of the head. She denies any vision changes. She also has no trouble chewing swallowing or speaking. She states that her extremities today did feel heavy at times. Patient also states that she is having some right shoulder pain that is chronic but is gotten worse of the last week. The right shoulder pain is worse with movement and better with rest. It does radiate down the right arm. The headache has no significant increasing or decre asing factors. It is severe and constant. - Related Data Allergies/Adverse Reactions: aspirin [From Percodan] Allergy (Verified 06/18/12 10:54) Generalized Itching cefaclor [From Ceclor] Allergy (Verified 06/18/12 10:54) Generalized Itching Cephalosporins Allergy (Verified 06/18/12 10:54) oxaprozin [From Daypro] Allergy (Verified 06/18/12 10:54) itch/throat swells closed oxycodone HCl [From Percodan] Allergy (Verified 06/18/12 10:54) Generalized Itching oxycodone terephthalate [From Percodan] Allergy (Verified 06/18/12 10:54) Generalized Itching ranitidine HCl [From Zantac] Allergy (Verified 06/18/12 10:54) Sulfa (Sulfonamide Antibiotics) Allergy (Verified 06/18/12 10:54) itch/throat swells Past Medical History - General Information source: Patient - Social History Smoking Status: Current Every Day Smoker Frequency of alcohol use: None Drug Abuse: None Family History: COPD Patient has suicidal ideation: No Patient has homicidal ideation: No - Past Medical History Cardiac Medical History: Denies: Hx Heart Attack, Hx Hypertension Pulmonary Medical History: Reports: Hx Bronchitis, Hx COPD Denies: Hx Asthma Neurological Medical History: Denies: Hx Cerebrovascular Accident, Hx Seizures Endocrine Medical History: Reports: Hx Diabetes Mellitus Type 2, Hx Hypothyroidism Renal/ Medical History: Denies: Hx Peritoneal Dialysis GI Medical History: Denies: Hx Hepatitis, Hx Hiatal Hernia - PT SUSPECTS BUT NO DX, Hx Ulcer Infectious Medical History: Denies: Hx Hepatitis Past Surgical History: Reports: Hx Neurologic Surgery - spinal fusion. Denies: Hx Mastectomy, Hx Open Heart Surgery, Hx Pacemaker Review of Systems - Review of Systems Constitutional: Malaise. denies: Chills, Fever EENT: denies: Eye discharge, Blurred vision, Tearing, Double vision Cardiovascular: denies: Chest pain, Palpitations Respiratory: denies: Cough, Short of breath -: Yes All other systems reviewed and negative Physical Exam - Vital signs Vitals: Temp Pulse Resp BP Pulse Ox 97.3 F 72 18 142/73 H 95 11/16/19 12:16 11/16/19 12:16 11/16/19 12:16 11/16/19 12:16 11/16/19 12:16 Interpretation: Normal - General General appearance: Appears well, Alert - HEENT Head: Normocephalic, Atraumatic Eyes: Normal Pupils: PERRL - Respiratory Respiratory status: No respiratory distress Chest status: Nontender Breath sounds: Normal Chest palpation: Normal - Cardiovascular Rhythm: Regular Heart sounds: Normal auscultation Murmur: No - Abdominal Inspection: Normal Distension: No distension Bowel sounds: Normal Tenderness: Nontender Organomegaly: No organomegaly - Back Back: Normal, Nontender - Extremities General upper extremity: Normal inspection, Other - Left shoulder is unr emarkable. Right shoulder has limited range of motion secondary to pain. It is tender somewhat diffusely to palpation. No abnormalities are palpated however. General lower extremity: Normal inspection, Nontender, Normal color, Normal ROM, Normal temperature, Normal weight bearing. No: David's sign - Neurological Neuro grossly intact: Yes Cognition: Normal Orientation: AAOx4 [place] Coma Scale Eye Opening: Spontaneous Payal Coma Scale Verbal: Oriented Payal Coma Scale Motor: Obeys Commands Payal Coma Scale Total: 15 Speech: Normal Cranial nerves: Normal Cerebellar coordination: No: Finger-nose rhombey Motor strength normal: LUE, RUE, LLE, RLE Additional motor exam normals: Equal digital advisor. No: Pronator drift, Weakness Sensory: Normal - Psychological Associated symptoms: Normal affect, Normal mood - Skin Skin Temperature: Warm Skin Moisture: Dry Skin Color: Normal Course - Re-evaluation Re-evalutation: 11/16/19 16:05 Patient presents with 2 concerns. First she has a left-sided temporal headache. She has no evidence of CVA or stroke on exam or head CT. No other type of lesion is appreciated on head CT. Also her vital signs are normal and without hypertension. Temporal [place] neuritis was considered however patient does not have a palpable temporal artery on that side. Her sed rate is not significantly elevated for her age, she has no white count, she has no vision changes, she has no pain with mastication. Patient also states that she prefers not to have biopsy. At this time I do not feel the patient requires a biopsy. Also patient's blood sugars are 150 and I do not feel that it would be appropriate to give the patient steroids. I did educate the patient and family about temporal arteritis and the need for possible biopsy if this pain would continue. As for the patient's shoulder pain it appears she most likely has some type of tendinitis possibly adhesive capsulitis. There is no evidence of any type of bony injury. No evidence that this is referred pain as she has significant pain with movement of the right shoulder. - Vital Signs Vital signs: Temp Pulse Resp BP Pulse Ox 97.3 F 72 13 130/81 H 95 11/16/19 12:16 11/16/19 12:16 11/16/19 13:03 11/16/19 13:03 11/16/19 12:16 - Laboratory Result Diagrams: 11/16/19 12:54 11/16/19 12:54 Laboratory results interpreted by me: 11/16/19 11/16/19 11/16/19 12:54 12:54 12:54 RBC 5.36 H Hgb 15.8 H RDW 16.7 H ESR 65 H Potassium 5.3 H Carbon Dioxide 32 H Glucose 146 H Creatine Kinase 23 L - Diagnostic Test Radiology reviewed: Image reviewed, Reports reviewed - EKG Interpretation by Wy EKG shows normal: Sinus rhythm Rate: Normal Rhythm: NSR - 76 [place]/QRS: Left axis deviation When compared to previous EKG there are: No significant change - The changes in the inferior leads appear to be nonacute as they are present on previous EKGs. Discharge - Discharge Clinical Impression: Headache Qualifiers: Headache type: unspecified Headache chronicity pattern: acute headache Intractability: not intractable Qualified Code(s): R51 - Headache Right shoulder pain Qualifiers: Chronicity: acute Qualified Code(s): M25.511 - Pain in right shoulder Condition: Stable Disposition: HOME, SELF-CARE Instructions: Headache ([facility]), Toradol Injection ([facility]) Additional Instructions: Please follow-up with your primary care physician as soon as possible for a recheck of your shoulder pain and headache. Prescriptions: Butalb/Acetaminophen/Caffeine [Fioricet 50-300-40 mg Capsule] 1 cap PO Q4 PRN #10 cap PRN Reason: Referrals: UZMA DING PA-C [Primary Care Provider] - Follow up as needed
[2019-11-16 16:28] VITALS: BP 130/73
== END 2019-11-16 16:35 | disposition home or self-care (01) ==
LOC: ER 12:11
DX: R51 Headache (principal); M25.511 Pain in right shoulder; R53.1 Weakness; F17.200 Nicotine dependence, unspecified, uncomplicated; Z88.6 Allergy status to analgesic agent; Z88.2 Allergy status to sulfonamides; Z98.1 Arthrodesis status
CPT/HCPCS: 93005; 99285; 96374; 36415; 82553; 82550; 85025; 85652; 80053; 81001; 84484; 73030; 70450; 93010; J1885